=== PATIENT | female | born 1965 | race Caucasian/White ===

== ENCOUNTER 2023-10-31 11:57 | Emergency (ER) | payer SELFPAY ==
[2023-10-31] MEDS: Lactated Ringers 1,000 ML IV SCH (12:36)
[2023-10-31] MEDS: Ketorolac 15 MG/ML SDV IVPUSH ONE (12:36)
[2023-10-31 12:38] LABS: BASOPHILS PERCENT AUTO 0.1 % (0.2-1.2); EOSINOPHILS PERCENT AUTO 0.1 % (0.0-4.0); HEMATOCRIT 39.5 % (33.0-47.0); HEMOGLOBIN 13.5 g/dL (12.0-16.0); IMMATURE GRAN ABSOLUTE AUTO 0.05 x10^3/uL (0.00-0.07); LYMPHOCYTES PERCENT AUTO 8.1 % (25.0-50.0); MEAN CORPUSCULAR HEMOGLOBIN 29.8 pg (26.0-32.0); MEAN CORPUSCULAR HGB CONC 34.2 g/dL (32.0-36.0); MEAN CORPUSCULAR VOLUME 87.2 fL (78.0-93.0); MONOCYTES ABSOLUTE AUTO 0.9 x10^3/uL (0.0-0.8); MONOCYTES PERCENT AUTO 6.8 % (2.0-11.0); NEUTROPHILS ABSOLUTE AUTO 10.9 x10^3/uL (1.8-7.7); NEUTROPHILS PERCENT AUTO 84.5 % (50.0-80.0); PLATELET COUNT,PLT 217 x10^3/uL (130-400); RED BLOOD CELL COUNT 4.53 x10^6/uL (4.00-5.50); WHITE BLOOD CELL COUNT,WBC 12.9 x10^3/uL (4.0-10.0)
[2023-10-31 12:57] LABS: ANION GAP 15.2 mmol/L (5-15); CALCIUM 8.9 mg/dL (8.5-10.1); CREATININE 1.1 mg/dL (0.55-1.02); EST CRCL DRUG DOSING (CG) 51.39 mL/min; POTASSIUM,K 4.2 mmol/L (3.5-5.1)
[2023-10-31 13:35] LABS: CORONAVIRUS COVID-19 NAA NEGATIVE (NEGATIVE); INFLUENZA A NAA NEGATIVE (NEGATIVE)
[2023-10-31 13:36] LABS: INFLUENZA B NAA NEGATIVE (NEGATIVE); RESPIRATORY SYNCYTIAL VIR NAA NEGATIVE (NEGATIVE)
[2023-10-31] MEDS: diphenhydrAMINE 25 MG Cap PO ONE (14:11)
[2023-10-31] MEDS: Prochlorperazine 5 MG Tab PO ONE (14:11)
[2023-10-31] MEDS: Azithromycin 250 MG Tab PO ONE (14:11)
[2023-10-31] MEDS: Acetaminophen 500 MG Tab PO ONE (14:12)
[2023-10-31] MEDS: cefTRIAXone 2 GM Vial IVPUSH SCH (14:14)
== END 2023-10-31 15:15 | disposition home or self-care (01) ==
LOC: VM.ED 11:57
DX: J18.9 Pneumonia, unspecified organism (principal); B34.9 Viral infection, unspecified; Z88.0 Allergy status to penicillin
CPT/HCPCS: 0241U; 71046; 80048; 83605; 84145; 85025; 96374; 96375; 99285; A9270; J0696; J1885; J7120; Q0164